=== PATIENT | male | born 1945 | race Caucasian/White ===

== ENCOUNTER 2020-03-02 07:11 | Emergency (ER) | payer MEDICARE, OTHER ==
[~2020-03-02] VITALS: Ht 177.8 cm; Wt 80.0 kg
[2020-03-02 08:42] LABS: CHLORIDE 107 mEq/L (98-107)
[2020-03-02 08:43] LABS: BASOPHILS % 0.4 % (0.0-2.0); HEMATOCRIT. 37.5 % (42.0-52.0); HEMOGLOBIN. 12.5 g/dL (14.0-18.0); LYMPHOCYTES % 9.2 % (20.0-50.0); MEAN CORPUSCULAR HEMOGLOBIN 30.4 pg (28.0-32.0); MEAN CORPUSCULAR VOLUME 91.7 fL (80.0-94.0); MEAN PLATELET VOLUME 8.9 fl (7.4-10.4); MONOCYTES % 8.3 % (2.0-8.0); NEUTROPHILS % 82.1 % (40.0-76.0); PLATELET 230 x1000/uL (130-400); RED BLOOD CELL COUNT 4.09 mill/uL (4.7-6.1)
[2020-03-02 08:46] LABS: ETHANOL BLOOD < 10 mg/dL
[2020-03-02 15:28] VITALS: BP 139/94
== END 2020-03-02 19:03 ==
LOC: EDBD 07:11 → ER 07:34
DX: Z00.00 Encounter for general adult medical examination without abnormal findings (principal); R93.0 Abnormal findings on diagnostic imaging of skull and head, not elsewhere classified
CPT/HCPCS: 36415; 80053; 80320; 85025; 99284; G0480